=== PATIENT | female | born 1990 | race Caucasian/White ===

== ENCOUNTER 2017-12-04 17:35 | Emergency (ER) | payer OTHER ==
[~2017-12-04] VITALS: Ht 170.2 cm; Wt 154.2 kg
[~2017-12-04 17:35] MED LIST: ACET325 PO; CEPH250A PO; FAMO20 PO; FOLI1 PO; FURO20 PO; HYDACE5 PO; IBUP400 PO; IBUP800 PO; LORA.5 PO; MULVITMINE PO; OXYACE5T PO; PRENATAL PO; PROM25 PO; PROM25S PR; SUCR1 PO; TRAM50 PO; TRAZ100 PO
[2017-12-04] MEDS ORDERED: Vibramycin100 MG PO (19:03)
[2017-12-04] MEDS ORDERED: Zofran Odt4 MG SL (19:03)
[2018-08-23] MEDS ORDERED: Norco 5-325 Ta1 EACH PO (18:42)
[2018-08-23] MEDS ORDERED: Cleocin HCl300 MG PO (18:42)
== END 2017-12-04 19:10 | disposition home or self-care (01) ==
LOC: ER 17:35
DX: L03.115 Cellulitis of right lower limb (principal); K85.90 Acute pancreatitis without necrosis or infection, unspecified; Z88.2 Allergy status to sulfonamides; Z79.1 Long term (current) use of non-steroidal anti-inflammatories (NSAID); Z87.891 Personal history of nicotine dependence
CPT/HCPCS: 99283

== ENCOUNTER 2018-01-13 19:39 | Emergency (ER) | payer OTHER ==
[~2018-01-13] VITALS: Ht 170.2 cm; Wt 154.2 kg
[~2018-01-13 19:39] MED LIST changes: +Vibramycin100 MG PO; +Zofran Odt4 MG SL
[2018-01-13] MEDS ORDERED: Cleocin HCl300 MG PO (21:48)
[2018-01-13] MEDS ORDERED: IBUP600 PO (21:48)
[2018-08-23] MEDS ORDERED: Norco 5-325 Ta1 EACH PO (18:42)
[2018-08-23] MEDS ORDERED: Cleocin HCl300 MG PO (18:42)
== END 2018-01-13 22:45 | disposition home or self-care (01) ==
LOC: ER 19:39
DX: N61.0 Mastitis without abscess (principal); Z88.2 Allergy status to sulfonamides; Z79.2 Long term (current) use of antibiotics; Z87.891 Personal history of nicotine dependence
CPT/HCPCS: 96365; 99283

== ENCOUNTER 2018-04-29 19:16 | Emergency (ER) | payer OTHER ==
[~2018-04-29] VITALS: Ht 170.2 cm; Wt 157.8 kg
[~2018-04-29 19:16] MED LIST changes: +Cleocin HCl300 MG PO; +IBUP600 PO
[2018-04-29] MEDS ORDERED: ASPI325 PO (19:45)
[2018-04-29] MEDS ORDERED: METO50ER PO (19:45)
[2018-04-29] MEDS ORDERED: Zofran Odt4 MG SL (19:49)
[2018-04-29] MEDS ORDERED: Percocet 5-3251 EACH PO (19:49)
[2018-04-29] MEDS ORDERED: Vibramycin100 MG PO (19:49)
== END 2018-04-29 19:55 | disposition home or self-care (01) ==
LOC: ER 19:16
DX: L03.311 Cellulitis of abdominal wall (principal); L03.116 Cellulitis of left lower limb; L03.113 Cellulitis of right upper limb; Z88.2 Allergy status to sulfonamides; Z87.891 Personal history of nicotine dependence
CPT/HCPCS: 99283

== ENCOUNTER 2018-06-08 16:40 | Emergency (ER) | payer OTHER ==
[~2018-06-08] VITALS: Ht 170.2 cm; Wt 157.8 kg
[~2018-06-08 16:40] MED LIST changes: +ASPI325 PO; +METO50ER PO; +Percocet 5-3251 EACH PO
[2018-06-08] MEDS ORDERED: Vibramycin100 MG PO (17:36)
== END 2018-06-08 18:07 | disposition home or self-care (01) ==
LOC: ER 16:40
DX: L03.112 Cellulitis of left axilla (principal); Z88.2 Allergy status to sulfonamides; Z79.899 Other long term (current) drug therapy; Z79.82 Long term (current) use of aspirin; Z87.891 Personal history of nicotine dependence
CPT/HCPCS: 99282

== ENCOUNTER → 2018-06-09 | Outpatient (CLI) | payer OTHER | LOC: LAB SHORT 18:10 → LAB 18:10 | DX: L08.9 Local infection of the skin and subcutaneous tissue, unspecified (principal) | CPT/HCPCS: 87070; 87075; 87077; 87147; 87186; 87205 ==

== ENCOUNTER → 2019-09-18 | Outpatient (CLI) | payer OTHER ==
[~2019-09-18] MED LIST changes: +Norco 5-325 Ta1 EACH PO
[2019-09-20 04:07] LABS: CHLAMYDIA TRACHOMATIS, NAA Negative (Negative); NEISSERIA GONORRHOEAE, NAA Negative (Negative)
[2019-09-20 14:07] LABS: HPV 16 Negative (Negative); HPV 18 Negative (Negative); HPV OTHER HR TYPES Negative (Negative)
== END | disposition home or self-care (01) ==
LOC: LAB SHORT 09:40 → LAB 09:40
PROVIDERS: Obstetrics & Gynecology
DX: Z01.419 Encounter for gynecological examination (general) (routine) without abnormal findings (principal); Z20.2 Contact with and (suspected) exposure to infections with a predominantly sexual mode of transmission
CPT/HCPCS: 87491; 87591; 87624; G0123

== ENCOUNTER → 2020-11-06 | Outpatient (CLI) | payer OTHER | LOC: LAB SHORT 14:30 | DX: N30.00 Acute cystitis without hematuria (principal) | CPT/HCPCS: 87077; 87086; 87186 ==

== ENCOUNTER → 2022-09-21 | Outpatient (CLI) | payer OTHER | LOC: LAB 14:36 → LAB SHORT 14:36 | DX: R30.0 Dysuria (principal) | CPT/HCPCS: 87086 ==

== ENCOUNTER 2023-08-05 15:47 | Emergency (ER) | payer OTHER ==
[~2023-08-05] VITALS: Ht 170.2 cm; Wt 158.8 kg
[~2023-08-05 15:47] MED LIST changes: +CEPH500 PO; +VISBIOME 112.51 EACH PO
[2023-08-05 15:59] VITALS: BP 148/86
[2023-08-05 16:31] LABS: BASOPHILS ABSOLUTE AUTO 0.04 K/mm3 (0.00-0.23); BASOPHILS PERCENT AUTO 0 % (0-2); EOSINOPHILS ABSOLUTE AUTO 0.33 K/mm3 (0.00-0.68); EOSINOPHILS PERCENT AUTO 2 % (0-6); Hematocrit 38.9 % (33.0-51.0); Hemoglobin 12.8 g/dL (11.5-16.0); IMMATURE GRAN ABSOLUTE AUTO 0.05 K/mm3 (0.00-0.10); IMMATURE GRAN PERCENT AUTO 0 % (0-1); LYMPHOCYTES ABSOLUTE AUTO 3.47 K/mm3 (0.84-5.20); LYMPHOCYTES PERCENT AUTO 24 % (21-46); MONOCYTES PERCENT AUTO 9 % (4-13); Mean Corpuscular HGB Conc 32.9 g/dL (31.5-36.5); Mean Corpuscular Volume 85 fL (80-100); Mean Platelet Volume 11.3 fL (9.1-12.4); NEUTROPHILS ABSOLUTE AUTO 9.25 K/mm3 (1.96-9.15); NEUTROPHILS PERCENT AUTO 64 % (41-73); Platelet Count 321 K/mm3 (150-400); RDW Coefficient Variation 14.5 % (11.7-14.2); RDW Standard Deviation 45.1 fL (35.1-46.3); Red Blood Cell Count 4.57 M/mm3 (3.80-5.20); White Blood Cell Count 14.44 K/mm3 (4.00-11.30)
[2023-08-05] MEDS ORDERED: ALBU90OI INH (16:37)
[2023-08-05 16:45] LABS: Albumin, Blood 3.3 g/dL (3.4-5.0); Albumin/Globulin Ratio 0.8 (0.8-1.8); Bilirubin, Total 0.2 mg/dL (0.1-1.0); Bun/Creatinine Ratio 22.1 (12.0-20.0); Calcium, Blood 9.8 mg/dL (8.5-10.1); Creatinine, Blood 0.68 mg/dL (0.40-1.00); Globulin, Blood 4.4 g/dL (2.2-4.0); Total Protein, Blood 7.7 g/dL (6.4-8.2)
[2023-08-05] MEDS ORDERED: Vibramycin100 MG PO (17:32)
[2023-08-05] MEDS ORDERED: AMOCLA875 PO (17:32)
== END 2023-08-05 18:03 | disposition home or self-care (01) ==
LOC: ER 15:47
PROVIDERS: Physician Assistant
DX: L03.115 Cellulitis of right lower limb (principal); Z88.2 Allergy status to sulfonamides; Z79.899 Other long term (current) drug therapy; Z87.891 Personal history of nicotine dependence
CPT/HCPCS: 80053; 85025; 96365; 99283-25; J0690

== ENCOUNTER → 2024-11-20 | Outpatient (CLI) | payer OTHER ==
[~2024-11-20] MED LIST changes: +ALBU90OI INH; +AMOCLA875 PO
== END ==
LOC: LAB 15:47 → LAB SHORT 15:47
DX: J34.0 Abscess, furuncle and carbuncle of nose (principal); L03.211 Cellulitis of face
CPT/HCPCS: 87070; 87077; 87186

== ENCOUNTER 2025-01-29 08:06 | Day surgery (SDC) | payer OTHER ==
[~2025-01-29] VITALS: Ht 170.2 cm; Wt 130.2 kg
[~2025-01-29 08:06] MED LIST changes: +IBUP200 PO; +NS 500 ML IV ONE; +propofoL 0 ML IV ONE
[2025-01-29] MEDS ORDERED: NS 1,000 ML IV ONE (08:59)
--- NOTE | 2025-01-29 09:11 | NUR ---
01/29/25 0911 [place] PAK 0900 TIMEOUT FOR LOCAL LIDO/EPI/NAHCO3 INJECTIONS COMPLETED AT BEDSIDE WITH YOANA ALVARENGA AND THIS RN. LEFT 7 CC INJECTED, RIGHT 8 CC INJECTED.
[2025-01-29] MEDS ORDERED: propofoL 20 ML IV ONE ×2 (09:21→09:27)
--- NOTE | 2025-01-29 09:35 | NUR ---
01/29/25 0935 Yaritza Cohn RN PREPPED THE RIGHT CARPAL [place] BECERRIL PREPPED THE LEFT TRIGGER FINGER
[2025-01-29 10:34] VITALS: BP 152/82
== END 2025-01-29 10:25 | disposition home or self-care (01) ==
LOC: ORSCSDS 08:06
PROVIDERS: Orthopaedic Surgery
PROC: 0LN80ZZ Release Left Hand Tendon, Open Approach (ICD-10-PCS; principal; 2025-01-29 09:30)
PROC: 01N54ZZ Release Median Nerve, Percutaneous Endoscopic Approach (ICD-10-PCS; principal; 2025-01-29 09:30)
DX: G56.01 Carpal tunnel syndrome, right upper limb (principal); M65.332 Trigger finger, left middle finger; F32.A Depression, unspecified; J45.909 Unspecified asthma, uncomplicated; E66.01 Morbid (severe) obesity due to excess calories; Z68.41 Body mass index [BMI] 40.0-44.9, adult; Z87.891 Personal history of nicotine dependence; Z79.899 Other long term (current) drug therapy
CPT/HCPCS: J2704; J7040